=== PATIENT | male | born 1960 | race Caucasian/White ===

== ENCOUNTER 2018-10-15 13:58 | Emergency (ER) | payer OTHER ==
[~2018-10-15] VITALS: Ht 182.9 cm; Wt 102.3 kg
[~2018-10-15 13:58] MED LIST: ASPI-831 PO; ATOR-2 PO; FENO145T37 PO; METO-448 PO; OMEP40CA6 PO; PRAS10TA6 PO
[2018-10-15 14:09] VITALS: Ht 182.9 cm; Wt 102.3 kg
[2018-10-15] MEDS ORDERED: NITROGLYCERIN 2% 1 GM OINT PKT TD STA (14:16)
[2018-10-15] MEDS ORDERED: ASPIRIN 325 MG TAB PO STA (14:16)
--- NOTE | 2018-10-15 15:23 | ERD ---
ER Documentation Chief Complaint Chief Complaint BIBA DUE TO CHEST PAIN HPI This is a 57-year-old male with a history of heart attacks, cardiac stents and CABG complains of a return of his substernal chest pain that is just like prior. He said yesterday he had some substernal chest pressure with some shortness of breath and that today he had more substernal chest pressure with some radiation down both of his arms or shortness of breath but no diaphoresis nausea palpitations or dizziness. Currently he is pain-free. He does not know the name of his [employer] ROS All systems reviewed and are negative except as per history of present illness. Medications Home Meds Reported Medications Atorvastatin* (Atorvastatin*) 40 Mg Tablet, 40 MG PO QHS, #30 TAB 10/15/18 Metoprolol Tartrate* (Lopressor*) 25 Mg Tab, 25 MG PO BID, #60 TAB 10/15/18 Prasugrel Hydrochloride* (Effient*) 10 Mg Tablet, 10 MG PO DAILY, TAB 10/15/18 Fenofibrate Nanocrystallized* (Fenofibrate*) 145 Mg Tablet, 145 MG PO DAILY, TAB 10/15/18 Omeprazole* (Omeprazole*) 40 Mg Capsule.dr, 40 MG PO DAILY, #30 CAP 10/15/18 Aspirin (Aspir-Low) 81 Mg Tablet.dr, 81 MG PO DAILY 10/15/18 Discontinued Scripts Prasugrel Hydrochloride* (Effient*) 10 Mg Tablet, 10 MG PO DAILY for 30 Days, TAB 11 Refills Prov:Julio BERNSTEIN05/17/16 Fenofibrate Nanocrystallized* (Fenofibrate*) 145 Mg Tablet, 145 MG PO DAILY for 30 Days, TAB 3 Refills Prov:ADAMA BERNSTEINANT 05/17/16 Atorvastatin* (Atorvastatin*) 80 Mg Tablet, 80 MG PO QHS, #30 TAB 3 Refills Prov:ADAMA BERNSTEIN05/17/16 Omeprazole* (Omeprazole*) 40 Mg Capsule.dr, 40 MG PO DAILY, #30 CAP 3 Refills Prov:GUILLERMO BERNSTEIN 05/17/16 Metoprolol Tartrate* (Lopressor*) 25 Mg Tab, 25 MG PO Q12 for 30 Days, TAB 3 Refills Prov:GUILLERMO BERNSTEIN 05/17/16 Aspirin (Aspirin) 81 Mg Chew, 81 MG PO DAILY for 30 Days, 3 Refills Prov:GUILLERMO BERNSTEIN 05/17/16 Allergies Allergies: Coded Allergies: No Known Allergy (Unverified , 10/15/18) PMhx/Soc History of Surgery: Yes (PCI(2008),CABG (2009)) Anesthesia Reaction: No Hx Neurological Disorder: No Hx Respiratory Disorders: No Hx Cardiac Disorders: Yes Hx Psychiatric Problems: No Hx Miscellaneous Medical Probl: No Hx Alcohol Use: No Hx Substance Use: No Hx Tobacco Use: No Smoking Status: Never smoker FmHx Family History: No coronary disease Physical Exam Vitals Vital Signs Date Temp Pulse Resp B/P (MAP) Pulse Ox O2 O2 Flow FiO2 Time Delivery Rate 10/15/18 Nasal 2 14:20 Cannula 10/15/18 98.6 94 16 141/92 98 14:09 (108) Physical Exam Const: Well-developed, well-nourished Head: Atraumatic, normocephalic Eyes: Normal Conjunctiva, PERRLA, EOMI, normal sclera, no nystagmus ENT: Normal External Ears, Nose and Mouth, moist mucus membranes. Neck: Full range of motion. No meningismus, no lymphadenopathy. Resp: Clear to auscultation bilaterally, no wheezing, rhonchi, rales Cardio: Regular rate and rhythm, no murmurs, S1 S2 present Abd: Soft, non tender x 4, non distended. Normal bowel sounds, no guarding or rebound, no pulsitile abdominal masses or bruits Skin: No petechiae or rashes, no ecchymosis , no maculopapular rash Back: No midline or flank tenderness Ext: No cyanosis, or edema, FROM x 4, normal inspection, neurovascul farrah intact x 4 Neur: Awake and alert, STR 5/5 x 4, sensation intact x 4, no focal findings, cerebellum intact Psych: Normal Mood and Affect Result Diagram: 10/15/18 1410 10/15/18 1410 Results 24 hrs Laboratory Tests Test 10/15/18 14:10 White Blood Count 11.8 10^3/ul Red Blood Count 5.77 10^6/ul Hemoglobin 16.4 g/dl Hematocrit 50.2 % Mean Corpuscular Volume 87.0 fl Mean Corpuscular Hemoglobin 28.4 pg Mean Corpuscular Hemoglobin Concent 32.7 g/dl Red Cell Distribution Width 13.8 % Platelet Count 278 10^3/UL Mean Platelet Volume 10.5 fl Immature Granulocytes % 0.300 % Neutrophils % 54.1 % Lymphocytes % 34.6 % Monocytes % 7.6 % Eosinophils % 2.5 % Basophils % 0.9 % Nucleated Red Blood Cells % 0.0 /100WBC Immature Granulocytes # 0.040 10^3/ul Neutrophils # 6.4 10^3/ul Lymphocytes # 4.1 10^3/ul Monocytes # 0.9 10^3/ul Eosinophils # 0.3 10^3/ul Basophils # 0.1 10^3/ul Nucleated Red Blood Cells # 0.0 10^3/ul Prothrombin Time 12.7 Sec Prothrombin Time Ratio 1.0 INR International Normalized Ratio 0.94 Activated Partial Thromboplast Time 26.7 Sec Sodium Level 140 mmol/L Potassium Level 4.2 mmol/L Chloride Level 106 mmol/L Carbon Dioxide Level 26 mmol/L Anion Gap 8 Blood Urea Nitrogen 14 mg/dl Creatinine 0.68 mg/dl Est Glomerular Filtrat Rate mL/min > 60 mL/min Glucose Level 148 mg/dl Calcium Level 9.8 mg/dl Total Bilirubin 0.4 mg/dl Direct Bilirubin 0.00 mg/dl Indirect Bilirubin 0.4 mg/dl Aspartate Amino Transf (AST/SGOT) 20 IU/L Alanine Aminotransferase (ALT/SGPT) 25 IU/L Alkaline Phosphatase 78 IU/L Troponin I < 0.012 ng/ml Total Protein 7.8 g/dl Albumin 4.3 g/dl Globulin 3.50 g/dl Albumin/Globulin Ratio 1.22 Current Medications Medications Dose Sig/Kiran Start Time Status Last (Trade) Ordered Route PRN Stop Time Admin Dose Reason Admin Aspirin 325 mg ONCE STAT 10/15/18 DC 10/15/18 (Aspirin) PO 14:16 10/15/18 14:33 14:17 1 inch ONCE STAT 10/15/18 DC 10/15/18 Nitroglycerin TD 14:16 10/15/18 14:33 14:17 (Nitroglyceri n 2% Oint) Procedures/MDM EKG: Rate/Rhythm: Normal Sinus Rhythm,NL intervals QRS, ST, QT: NORMAL [place], QRS, QT, incomplete right bundle branch block] Impression: Borderline EKG Ordering MD: ZEN KINNEY DO Location: E/R Room/Bed: PROCEDURE: XR Chest. CLINICAL INDICATION: Chest pain TECHNIQUE: Frontal chest x-ray was obtained. COMPARISON: Chest x-ray May 14, 2016 FINDINGS: The heart is not enlarged. The patient is post CABG. Mediastinum is not widened. No hilar masses seen. Lungs are clear of any infiltrates. There is hyperinflation. There is no effusion or pneumothorax. The osseous structures appear normal. IMPRESSION: Hyperinflation. No pneumonia or failure. .Gustavo Dexter MD, MD Date Time Electronically viewed and signed by .Gustavo Dexter MD, MD on 10/15/2018 15:37 .A/ CC: ZEN KINNEY DO [id number] Cardiac Admit MDM: Patient's symptoms are concerning for cardiac cause will require inpatient workup and continuous monitoring. Further w/u for ischemia, arrhythmia, PE or dissection will be deferred to the inpatient team. Departure Diagnosis: Primary Impression: Chest pain Chest pain type: unspecified Qualified Codes: R07.9 - Chest pain, unspecified Condition: Stable ZEN KINNEY DO Oct 15, 2018 15:23
[2018-10-15] MEDS ORDERED: ASPI81TA50 PO (15:26)
[2018-10-15] MEDS ORDERED: OMEP40CA6 PO (15:26)
[2018-10-15] MEDS ORDERED: FENO145T37 PO (15:27)
[2018-10-15] MEDS ORDERED: PRAS10TA6 PO (15:27)
[2018-10-15] MEDS ORDERED: METO-448 PO (15:27)
[2018-10-15] MEDS ORDERED: ATOR40TA68 PO (15:28)
[2018-10-15] MEDS ORDERED: NITR0.4T39 SL (16:24)
[2018-10-15 16:42] VITALS: BP 100/69; PULSE 91; RESP 17
== END 2018-10-15 16:45 | disposition left against medical advice (07) ==
LOC: E/R 13:58
DX: R07.2 Precordial pain (principal); R07.9 Chest pain, unspecified; Z79.82 Long term (current) use of aspirin; Z95.1 Presence of aortocoronary bypass graft; Z98.61 Coronary angioplasty status
CPT/HCPCS: 36415; 71045; 80053; 84484; 85025; 85610; 85730; Z7502; Z7610; 93005